=== PATIENT | male | born 1930 | race Two or more races ===

== ENCOUNTER 2020-03-01 18:23 | Inpatient (IN) | payer BC, MEDICARE, OTHER ==
[~2020-03-01] VITALS: Ht 185.4 cm; Wt 77.1 kg
[~2020-03-01 18:23] MED LIST: NO MEDS
[2020-03-01] MEDS ORDERED: MORPHINE SULFATE INJ 4 MG/ML DISP.SYRIN ONE ×2 (18:46→21:29)
[2020-03-01] MEDS ORDERED: ONDANSETRON HCL/PF 4 MG/2 ML VIAL ONE ×2 (18:46→21:29)
[2020-03-01] MEDS ORDERED: ACETAMINOPHEN ES 500 MG TABLET ONE (18:47)
[2020-03-01 18:57] LABS: BASOPHILS % (AUTO) 0.4 % (0.0-2.0); EOSINOPHILS % (AUTO) 1.2 % (0.0-6.0); HEMATOCRIT 39 % (39-51); HEMOGLOBIN 13.1 g/dL (13.5-17.5); LYMPHOCYTES % (AUTO) 12.9 % (20.0-44.0); MEAN CORPUSCULAR HGB CONC 33 g/dl (31.0-36.0); MEAN CORPUSCULAR VOLUME 98 fL (80-96); MONOCYTES # (AUTO) 0.4 /CMM (0.1-1.30); MONOCYTES % (AUTO) 5.9 % (2.0-12.0); NEUTROPHILS # (AUTO) 5.9 /CMM (1.8-8.9); NEUTROPHILS % (AUTO) 79.6 % (43.0-81.0); PLATELET COUNT (AUTO) 247 /CMM (150-450); RED BLOOD CELL COUNT(AUTO) 4.02 MIL/uL (4.5-6.0); WHITE BLOOD COUNT (AUTO) 7.4 K/uL (4.3-11.0)
--- NOTE | 2020-03-01 18:59 | NUR ---
BIB [facility], TRIPPED/FELL GETTING OUT OF HIS CAR,C/O RIGHT HIP PAIN,ABRASION. PT AAOX3, VSS. RR EVEN & UNLABORED. DENIES CP, SOB, DIZZINESS, N/V AT THIS TIME. PT SEEN & EVAL'D BY DR. PEGUERO. MEDICATED FOR PAIN, PT CHANCE WELL. WILL CONT TO MONITOR.
[2020-03-01] MEDS ORDERED: IV NS 0.9% 500 ML BAG IV ONE (19:00)
[2020-03-01] MEDS ORDERED: ONDANSETRON HCL/PF 4 MG/2 ML VIAL IVP ONE (19:00)
[2020-03-01] MEDS ORDERED: MORPHINE SULFATE INJ 2 MG/ML DISP.SYRIN IV ONE ×2 (19:00→22:30)
[2020-03-01] MEDS ORDERED: ACETAMINOPHEN ES 500 MG TABLET PO ONE (19:00)
[2020-03-01 19:06] LABS: CALCIUM, SERUM 8.6 mg/dL (8.5-10.1); CREATININE 0.9 mg/dL (0.6-1.3); POTASSIUM 3.3 mmol/L (3.5-5.1)
--- NOTE | 2020-03-01 20:13 | NUR ---
COVID SWAB SAMPLE COLLECTED AND SENT TO THE LAB.
[2020-03-01] MEDS ORDERED: VANCOMYCIN 1 GM in IV D5W 250 ML IV ONE (21:00)
[2020-03-01] MEDS ORDERED: VANCOMYCIN 1 GM VIAL ONE (21:29)
--- NOTE | 2020-03-01 22:11 | NUR ---
MEDICATED FOR PAIN PER ERMD ORDER, PT CHANCE WELL.
[2020-03-01] MEDS ORDERED: ONDANSETRON HCL/PF 4 MG/2 ML VIAL IV ONE (22:30)
--- NOTE | 2020-03-01 22:37 | NUR ---
REPORT GIVEN TO CURTIS ASKEW FOR SOO
[2020-03-02] MEDS ORDERED: Z GUARD REMEDY 2 OZ OINT TP PRN (00:30)
[2020-03-02] MEDS ORDERED: MAGNESIUM HYDROXIDE 30 ML UDC PO PRN (00:30)
[2020-03-02] MEDS ORDERED: POTASSIUM CHLORIDE 20 MEQ TAB.PRT.SR PO ONE (00:30)
[2020-03-02] MEDS ORDERED: ZOLPIDEM TARTRATE 5 MG TABLET PO PRN (00:30)
[2020-03-02] MEDS ORDERED: ACETAMINOPHEN 325 MG TABLET PO PRN (00:30)
[2020-03-02] MEDS ORDERED: MAG HYDROX/AL HYDROX/SIMETH 30 ML UDC PO PRN (00:30)
[2020-03-02] MEDS ORDERED: ONDANSETRON HCL/PF 4 MG/2 ML VIAL IVP PRN (00:30)
[2020-03-02 00:45] VITALS: BP 129/97
[2020-03-02 00:48] VITALS: BP 129/97
--- NOTE | 2020-03-02 00:48 | NUR ---
MS GROUND SERVICE EQUIPMENT MECHANIC NOTE RECEIVED PATIENT VIA GURNEY. TRANSFER TO BED. A/OX4. TOLERATING ROOM AIR. RESPIRATIONS ARE EVEN AND UNLABORED. NO S/S SOB NOTED. C/O PAIN IN RIGHT HIP. IN NO APPARENT DISTRESS. IV ACCESS IN RAC#20 PATENT AND SALINE LOCKED. INITIAL PHYSICAL ASSESSMENT COMPLETED AT THIS TIME. PATIENT REFUSED PHOTOS TO BE TAKEN OF SKIN ISSUES D/T PAIN. PATIENT PROVIDED VERY LIMITED HISTORY, DID NOT WANT TO SPEAK MUCH. FOOD PREP WORKER OBTAINED VITALS AND COMPLETED BELONGINGS LIST. BED IS LOW AND LOCKED, HOB ELEVATED IN SEMI FOWLERS, SIDE RAILS UP X3. CALL LIGHT WITHIN REACH. WILL CONTINUE TO MONITOR.
--- NOTE | 2020-03-02 00:54 | NUR ---
PATIENT TAKEN UP TO ASSIGNED ROOM.
--- NOTE | 2020-03-02 01:35 | NUR ---
ms rn note administered prn tylenol 650mg for slight temp 99.7. will continue to monitor.
--- NOTE | 2020-03-02 02:45 | NUR ---
MS RN NOTE INFORMED DR. CARTAGENA PATIENT VTE SCORE IS GREATER THAN 5 AND IF HE WOULD LIKE ANY CHEMICAL PROPHYLAXIS. TELEPHONE ORDER NOT AT THIS TIME, PATIENT MIGHT GET SURGERY. ORDER READ BACK, NOTED AND CARRIED OUT. WILL CONTINUE TO MONITOR.
[2020-03-02] MEDS: MORPHINE SULFATE INJ 2 MG/ML DISP.SYRIN IV PRN ×5 (03:27→23:45)
--- NOTE | 2020-03-02 03:30 | NUR ---
ms rn note administered prn morphine 2mg for pain 10/10 in right hip. bp 137/83 hr 114. patient is restless and trying to reposition to get comfortable. also reassess temp at this time. temp 99.0. will continue to monitor.
--- NOTE | 2020-03-02 07:30 | NUR ---
RN OPENING NOTE: RECEIVED PT AWAKE IN BED. PT C/O 11/26 RIGHT HIP PAIN. MEDICATED ROUTINELY WITH MORPHINE 2MG IVP. PATIENT A+OX1 WITH PERIODS OF CONFUSION.PATIENT BREATHING IS UNLABORED WITH EQUAL R ISE AND FALL OF THE CHEST. PT STABLE ON RA. RIGHT AC # 20 PATENT AND FLUSHING WITH NO S/SX OF INFILTRATION NOTED. PATIENT ASSISTED WITH REPOSITIONING FOR COMFORT AND CIRCULATION. PATIENT HAS NO FURTHER NEEDS AT PRESENT TIME. PATIENT EDUCATED ON USE OF THE CALL LIGHT. BED IN LOW AND LOCKED POSITION WITH SIDE RAILS UP X 2 FOR SAFETY. WILL CONT TO MONITOR
--- NOTE | 2020-03-02 07:54 | NUR ---
MS RN CLOSING NOTE PATIENT RESTING IN BED. A/OX4. TOLERATING ROOM AIR. NO RESP DISTRESS. MANAGED PAIN WITH MORPHINE. NO DISTRESS. IV ACCESS MAINTAINED IN RAC#20. BED REMAINS LOW AND LOCKED, HOB ELEVATED IN SEMI FOWLERS, SIDE RAILS UP X3. CALL LIGHT WITHIN REACH. WILL ENDORSE TO NEXT ASHIFT.
--- NOTE | 2020-03-02 09:05 | NUR ---
RN NOTE: PAIN PT C/O RIGHT HIP PAIN 01/26. MEDICATED WITH MORPHINE
--- NOTE | 2020-03-02 13:14 | NUR ---
RN NOTE: PAIN PT C/O 10/10 RIGHT HIP PAIN. MEDICATED WITH MORPHINE 2MG IVP
--- NOTE | 2020-03-02 17:24 | NUR ---
RN NOTE: PAIN PT C/O 10/10 RIGHT HIP PAIN. MEDICATED WITH MORPHINE 2MG IVP
--- NOTE | 2020-03-02 19:00 | NUR ---
RN CLOSING NOTE: PATIENT IN BE INTERMITTENTLY SLEEPING. NO S/SX OR COMPLAINT OF PAIN AT CURRENT TIME. MEDICATED MULTIPLE TIMES THROUGHOUT SHIFT WITH SUCCESSFUL PAIN RELIEF. SL PATENT, FLUSHING WITHOUT S/SX OF INFILTRATION. PT STABLE ON RA. PATIENT ASSISTED WITH REPOSITIONING EVERY 2 HOURS FOR COMFORT AND SKIN INTEGRITY. PT NPO AND CONSENT SIGNED FOR SURGERY AT 0900 IN AM. ALL NEEDS ANTICIPATED AND MET. PT KEPT CLEAN AND DRY. CONTINENT AND USES URINAL. BED IN LOW AND LOCKED POSITION WITH SIDE RAILS UP X 2 FOR SAFETY.
--- NOTE | 2020-03-02 19:20 | NUR ---
Opening Notes: Report received from am nurse. Patient is alert, awake, and oriented x2. Able to make needs known. No acute distress noted. Patient noted with open wound, scratches, and scabs on right leg, and a skin tear on right elbow with discoloration. Patient denies any pain. Patient agreed to take pictures. IV site noted on right AC, 20 g, patent and intact, no s/s of infiltration noted. Skin kept clean and dry. Assisted with ADLs as needed. Fall precautions observed. Call light within reach.
[2020-03-02 20:00] VITALS: BP 125/73
--- NOTE | 2020-03-02 23:30 | NUR ---
RN NOTES RECEIBVED PT'S FROM ANOTHER RN MEGAN, PT'S IS AWAKE , A/OX3, COMPLAINED OF RIGHT HIP PAIN, IV ACCESS IS INFILTRATED- WILL PUT A NEW IV ACCESS, NOT IN DISTRESS, CALL LIGHT WITHIN REACH, [id number], CONTINUE TO MONITOR
--- NOTE | 2020-03-02 23:35 | NUR ---
RN NOTES NEW IV ACCESS WAS INSERTED ON THE LEFT FOREARM GAUGE 20
--- NOTE | 2020-03-02 23:45 | NUR ---
RN NOTES COMPLAINED OF RIGHT HIP PAIN- MORPHINE 2 MG IV GIVEN ORDERED, V/S STABLE
[2020-03-03] VITALS (12 sets, daily range): BP systolic 101–129; BP diastolic 58–71
[2020-03-03] MEDS: MORPHINE SULFATE INJ 2 MG/ML DISP.SYRIN IV PRN (06:01)
--- NOTE | 2020-03-03 06:19 | NUR ---
RN NOTES COMPLAINED OF RIGHT HIP PAIN- MORPHINE 2 MG IV GIVEN ORDERED, V/S STABLE
--- NOTE | 2020-03-03 06:20 | NUR ---
RN NOTES MORNING CARE RENDERED, NOT IN DISTRESS, CALL LIGHT WITHIN REACH, [id number], PT. NEEDS ATTENDED
[2020-03-03 06:39] LABS: BASOPHILS % (AUTO) 0.1 % (0.0-2.0); HEMATOCRIT 31 % (39-51); HEMOGLOBIN 10.4 g/dL (13.5-17.5); LYMPHOCYTES # (AUTO) 0.9 /CMM (0.8-4.8); LYMPHOCYTES % (AUTO) 8.4 % (20.0-44.0); MEAN CORPUSCULAR HGB CONC 34 g/dl (31.0-36.0); MEAN CORPUSCULAR VOLUME 97 fL (80-96); MONOCYTES # (AUTO) 0.8 /CMM (0.1-1.30); MONOCYTES % (AUTO) 6.7 % (2.0-12.0); NEUTROPHILS # (AUTO) 9.5 /CMM (1.8-8.9); NEUTROPHILS % (AUTO) 84.8 % (43.0-81.0); PLATELET COUNT (AUTO) 227 /CMM (150-450); RED BLOOD CELL COUNT(AUTO) 3.16 MIL/uL (4.5-6.0); WHITE BLOOD COUNT (AUTO) 11.2 K/uL (4.3-11.0)
[2020-03-03 06:54] LABS: CALCIUM, SERUM 8.9 mg/dL (8.5-10.1); CREATININE 0.7 mg/dL (0.6-1.3); MAGNESIUM 1.9 mg/dL (1.8-2.4); PHOSPHORUS 3.3 mg/dL (2.5-4.9); POTASSIUM 4.1 mmol/L (3.5-5.1)
[2020-03-03] MEDS: IV NS 0.9% 1,000 ML IV PRN ×2 (08:14→21:48)
[2020-03-03 08:25] LABS: IRON, SERUM 56 ug/dl (50-175); TOTAL IRON BINDING CAPACITY 189 ug/dl (250-450)
[2020-03-03] MEDS ORDERED: BACITRACIN 50000 UNITS/VIAL ONE (08:25)
[2020-03-03] MEDS ORDERED: BUPIVACAINE 0.5 % PF 150 MG/30 ML VIAL ONE (08:25)
[2020-03-03 08:39] LABS: FERRITIN 104 ng/mL (8-388)
--- NOTE | 2020-03-03 09:02 | NUR ---
MS RN NOTES PATIENT IN BED RESTING. PATIENT ALERT, ORIENTED X3 NO SOB OR ACUTE DISTRESS NOTED. PATIENT NPO. WAITING FOR SURGERY SCHEDULED AT 11:AM. PATIENT WITH PERIPHERAL IV INTACT PATENT. SAFETY MEASURES IN PLACE. WILL CONTINUE TO MONITOR.
[2020-03-03] MEDS ORDERED: SUCCINYLCHOLINE CHLORIDE 20 MG/ML VIAL ONE (11:34)
[2020-03-03] MEDS ORDERED: KETOROLAC TROMETHAMINE INJ 30 MG/ML VIAL ONE (12:29)
[2020-03-03] MEDS ORDERED: FENTANYL PF 100MCG/2ML AMPUL ONE (12:42)
--- NOTE | 2020-03-03 13:30 | NUR ---
MS RN NOTES PATIENT RETURNED FROM OR IN STABLE CONDITION, WILL CONTINUE TO MONITOR.
--- NOTE | 2020-03-03 18:48 | NUR ---
MS RN NOTES PATIENT IN BED RESTING NO SOB OR ACUTE DISTRESS NOTED. PATIENT S/P IM RODDING. TOLERATED SURGERY WELL. NO ACUTE CHANGES NOTED. SURGICAL SITE COVERED WITH SURGICAL DRESSING. DRY AND INTACT. PATIENT DENIES ANY PAIN. ALL DUE MEDICATIONS ADMINISTERED. ALL NEEDS MET. WILL ENDORSE CARE TO PM SHIFT.
[2020-03-03] MEDS: ANCEF 1 GM/50 ML D5W IV SCH ×2 (18:52)
[2020-03-03] MEDS: HYDROCODONE/APAP 5/325MG TABLET PO PRN (19:03)
--- NOTE | 2020-03-03 19:34 | NUR ---
RN OPENING NOTES PATIENT RECEIVED RESTING IN BED A/O X 2. STABLE ON RA WITH BREATHING EVEN AND UNLABORED, NO SOB NOTED. NO SIGNS OF ACUTE DISTRESS. NO SIGNS OF PAIN OR DISCOMFORT AT THE MOMENT. IV LOCATED ON L FA #20 SL. SAFETY PRECAUTIONS IN PLACE WITH BED IN LOWEST POSITION, CALL LIGHT WITHIN REACH, BREAKS ON, SIDE RAILS UP. WILL CONTINUE TO MONITOR THROUGHOUT THE NIGHT.
[2020-03-04] MEDS: ANCEF 1 GM/50 ML D5W IV SCH ×4 (03:19→11:21)
--- NOTE | 2020-03-04 06:46 | NUR ---
RN CLOSING NOTES PATIENT RESTING IN BED A/O X 3. STABLE ON RA WITH BREATHING EVEN AND UNLABORED, NO SOB NOTED. NO SIGNS OF ACUTE DISTRESS. NO SIGNS OF PAIN OR DISCOMFORT AT THE MOMENT. IV LOCATED ON L FA #20 RUNNING NS @ 125 ML/HR. SAFETY PRECAUTIONS IN PLACE WITH BED IN LOWEST POSITION, CALL LIGHT WITHIN REACH, BREAKS ON, SIDE RAILS UP. ALL NEEDS ATTENDED TO. PATIENT KEPT CLEAN AND DRY. WILL ENDORSE TO ONCOMING SHIFT ABOUT SOO.
[2020-03-04] MEDS: IV NS 0.9% 1,000 ML IV PRN ×2 (06:47→19:08)
[2020-03-04 07:26] LABS: BASOPHILS % (AUTO) 0.2 % (0.0-2.0); HEMATOCRIT 24 % (39-51); HEMOGLOBIN 7.9 g/dL (13.5-17.5); LYMPHOCYTES # (AUTO) 0.6 /CMM (0.8-4.8); MEAN CORPUSCULAR HGB CONC 34 g/dl (31.0-36.0); MEAN CORPUSCULAR VOLUME 99 fL (80-96); MONOCYTES # (AUTO) 0.5 /CMM (0.1-1.30); MONOCYTES % (AUTO) 7.1 % (2.0-12.0); NEUTROPHILS # (AUTO) 5.8 /CMM (1.8-8.9); NEUTROPHILS % (AUTO) 83.7 % (43.0-81.0); PLATELET COUNT (AUTO) 186 /CMM (150-450); RED BLOOD CELL COUNT(AUTO) 2.39 MIL/uL (4.5-6.0)
[2020-03-04 07:40] LABS: POTASSIUM 3.9 mmol/L (3.5-5.1)
[2020-03-04 07:41] LABS: ALBUMIN 2.4 g/dL (3.4-5.0); BILIRUBIN,TOTAL 0.7 mg/dL (0.2-1.0); CALCIUM, SERUM 7.9 mg/dL (8.5-10.1); CREATININE 0.9 mg/dL (0.6-1.3); MAGNESIUM 1.9 mg/dL (1.8-2.4); PHOSPHORUS 2.8 mg/dL (2.5-4.9); TOTAL PROTEIN, SERUM 5.5 g/dL (6.4-8.2)
[2020-03-04 08:00] VITALS: BP 118/69
--- NOTE | 2020-03-04 08:08 | NUR ---
MS RN NOTES PATIENT IN BED RESTING. ALERT, ORIENTED X2. PATIENT IS FORGETFUL. NO SOB OR ACUTE DISTRESS NOTED. PERIPHERAL IV INTACT PATENT. SAFETY MEASURES IN PLACE. WILL CONTINUE TO MONITOR. PATIENT WAITING FOR PT EVAL.
[2020-03-04] MEDS: MORPHINE SULFATE INJ 2 MG/ML DISP.SYRIN IV PRN (09:58)
--- NOTE | 2020-03-04 10:52 | NUR ---
WOUND CARE CONSULT: PT PRESENTS WITH NONHEALING WOUND TO RT LOWER LEG AND SKIN TEAR TO RT UPPER ARM, PRESENT ON ADMISSION. PT STATES HAS HAD LEG WOUND FOR 2 YEARS AND THAT IT BLEEDS EASILY. RECOMMEND DPM CONSULT. DR PATEL NOTIFIED OF CONSULT REQUEST. RECOMMENDATIONS MADE FOR WOUND CARE AND SKIN PROTECTION. DISCUSSED WITH NURSING STAFF. IN AGREEMENT WITH PLAN OF CARE. Addendum: 03/04/20 at 1054 by LINO SOLOMON WNDNU Amended: Links added.
[2020-03-04] MEDS ORDERED: ENOXAPARIN SODIUM 40 MG/0.4 ML DISP.SYRIN SQ SCH (13:00)
[2020-03-04 16:00] VITALS: BP 116/61
--- NOTE | 2020-03-04 18:21 | NUR ---
MS RN NOTES PATIENT IN BED RESTING NO SOB OR ACUTE DISTRESS NOTED. ALL DUE MEDICATIONS ADMINISTERED. ALL NEEDS MET. NO ACUTE CHANGES NOTED DURING AM SHIFT WILL CONTINUE TO MONITOR.
--- NOTE | 2020-03-04 19:50 | NUR ---
MS RN OPENING NOTES RECEIVED PATIENT IN BED ALERT AND ORIENTED X 3. VERBALLY RESPONSIVE AND ABLE TO FOLLOW DIRECTIONS. BREATHING REGULAR AND UNLABORED ON ROOM AIR. LEFT FOREARM G22 IV LINE INTACT AND PATENT, INFUSING WELL WITH NO BLEEDING OR S/S OF INFILTRATION NOTED. NO ACTIVE BLEEDING OR S/S OF INFECTION SEEN ON POST SURGICAL SITE. NO COMPLAINTS OF PAIN/DISCOMFORT REPORTED AT THIS TIME. BED LOW AND LOCKED ON SEMI FOWLERS POSITION. CALL LIGHT IN REACH. WILL CONTINUE TO MONITOR.
[2020-03-04 20:00] VITALS: BP 126/76
[2020-03-05] MEDS: IV NS 0.9% 1,000 ML IV PRN (04:31)
--- NOTE | 2020-03-05 06:25 | NUR ---
MS RN CLOSING NOTES PATIENT IN BED ALERT AND ORIENTED X 2. AFEBRILE WITH NO S/S OF DISTRESS OBSERVED. LEFT FOREARM G22 IV LINE PATENT AND INFUSING WELL. NO ACTIVE BLEEDING OR S/S OF INFECTION SEEN ON POST SURGICAL SITE. NO S/S OF PAIN/DISCOMFORT NOTED AT THIS TIME. BED LOW AND LOCKED ON SEMI FOWLERS POSITION. CALL LIGHT IN REACH. WILL ENDORSE TO MORNING SHIFT FOR SOO.
--- NOTE | 2020-03-05 07:30 | NUR ---
m/s manager purchasing: initial assessment received pt in bed awake, a/ox3 with forgetfulness. reality orientation provided prn. s/p right hip im rodding, surgical dressing intact. remains on iv fluids, infusing well. no c/o pain at this time. instructed to call for assistance. will continue to monitor.
[2020-03-05 07:34] LABS: BASOPHILS % (AUTO) 0.2 % (0.0-2.0); EOSINOPHILS % (AUTO) 0.3 % (0.0-6.0); HEMATOCRIT 22 % (39-51); HEMOGLOBIN 7.4 g/dL (13.5-17.5); LYMPHOCYTES # (AUTO) 0.5 /CMM (0.8-4.8); LYMPHOCYTES % (AUTO) 8.7 % (20.0-44.0); MEAN CORPUSCULAR HGB CONC 34 g/dl (31.0-36.0); MEAN CORPUSCULAR VOLUME 99 fL (80-96); MONOCYTES # (AUTO) 0.5 /CMM (0.1-1.30); MONOCYTES % (AUTO) 8.4 % (2.0-12.0); NEUTROPHILS # (AUTO) 4.5 /CMM (1.8-8.9); NEUTROPHILS % (AUTO) 82.4 % (43.0-81.0); PLATELET COUNT (AUTO) 194 /CMM (150-450); RED BLOOD CELL COUNT(AUTO) 2.21 MIL/uL (4.5-6.0); WHITE BLOOD COUNT (AUTO) 5.4 K/uL (4.3-11.0)
[2020-03-05 07:52] LABS: ALBUMIN 2.3 g/dL (3.4-5.0); BILIRUBIN,TOTAL 0.6 mg/dL (0.2-1.0); CALCIUM, SERUM 7.8 mg/dL (8.5-10.1); CREATININE 0.7 mg/dL (0.6-1.3); MAGNESIUM 1.8 mg/dL (1.8-2.4); PHOSPHORUS 2.2 mg/dL (2.5-4.9); POTASSIUM 3.5 mmol/L (3.5-5.1); TOTAL PROTEIN, SERUM 5.5 g/dL (6.4-8.2)
[2020-03-05 08:00] VITALS: BP 141/70
--- NOTE | 2020-03-05 08:50 | NUR ---
m/s typesetters printer: ortho f/u debbie hayden (p.a.) here and dressing change to right hip. informed p.a. that pt's hgb/hct still low for lovenox and ask if he needs prophylaxis, stated, "let's keep the lovenox order, once his level is up to give it, and i will let dr. morales if he needs aspirin." will continue to monitor.
--- NOTE | 2020-03-05 09:00 | NUR ---
m/s home hospice rn: notes dr. bradley (dpm) here and made aware re: rle wound, stated, "dr. mcpherson saw him already, but she hasn't put a note yet." informed dr. bradley still awaiting for wound treatment order. will wait for dr. mcpherson's recommendation. in the meantime dress with xeroform per dr. bradley.
[2020-03-05] MEDS: HYDROCODONE/APAP 5/325MG TABLET PO PRN (09:36)
--- NOTE | 2020-03-05 09:36 | NUR ---
m/s sleeve sewer: notes medicated with norco 5/325 1 tab po prior to physical therapy treatment. instructed to call for assistance. karmen (p.t.) at bedside and will come back in half an hour for tx.
--- NOTE | 2020-03-05 10:36 | NUR ---
m/s wastewater treatment supervisor: notes pt tolerated p.t. tx, resting comfortable in bed now. instructed to call for assistance. will continue to monitor.
[2020-03-05] MEDS ORDERED: K PHOS NEUTRAL 250 MG TABLET PO ONE (11:00)
--- NOTE | 2020-03-05 12:00 | NUR ---
m/s vacuum cleaner operator: md visit seen and examined by dr. carter. pt for d'c planning to [facility], pt is agreeable. case management making arrangement.
--- NOTE | 2020-03-05 13:32 | NUR ---
Filler Leaf Cutter Long consult requested by Dr. Lamont Steinberg. SW met with the patient at bedside. Patient is alert and oriented x4, able to make his needs known. Patient is a 89 year-old male. Patient did not want to provide much information to this SW but the patient informed this SW that the patient was agreeable to [facility] as case management team had spoken to him. Patient ended this SW assessment as patient stated he wanted to rest. SW to remain available for all needs regarding this patient.
--- NOTE | 2020-03-05 15:45 | NUR ---
m/s fisher eel spear: notes jeovany (liam) called and informed me that pt is going to [facility]. pt made aware re: d'c to [facility] and agreeable. pt refused flu and pneumococcal vaccine when offered, stated, "i'll think about it and maybe if i change my mind, i will do it at the rehab." ask pt if i can call anyone for him, stated, "i don't have anyone."
--- NOTE | 2020-03-05 16:15 | NUR ---
m/s service worker: notes report given to evelia (rn) at [facility] for continuity of care. eta at 1800. pt aware.
--- NOTE | 2020-03-05 16:30 | NUR ---
m/s die designer: notes discharge instructions given to pt and verbalized understanding. eta remains at 1800.
--- NOTE | 2020-03-05 17:56 | NUR ---
m/s monogram technician: notes received tx order from dpm re: Wound location <RLE`>Instructions <Please apply therahoney and dress with DSD daily. order acknowledged. updated discharge instructions papers. awaiting for ambulance.
--- NOTE | 2020-03-05 18:35 | NUR ---
m/s escrow secretary: notes ambulance here and report given to one of the crew. h/l removed with tip intact. all valuables returned to pt. pt stable for discharge.
--- NOTE | 2020-03-05 18:50 | NUR ---
m/s qa reviewer: discharge discharged to [facility] in stable condition with all valuables and d'c papers accompanied by 3 emt.
[2020-03-06] MEDS ORDERED: THERAHONEY GEL 1.5 OZ TUBE TP SCH (09:00)
== END 2020-03-05 18:50 | DRG 481 ==
LOC: ER 18:27 → MED 03-02 00:26
PROC: 0QS606Z Reposition Right Upper Femur with Intramedullary Internal Fixation Device, Open Approach (ICD-10-PCS; principal; 2020-03-03)
DX: S72.141A Displaced intertrochanteric fracture of right femur, initial encounter for closed fracture (principal); L97.919 Non-pressure chronic ulcer of unspecified part of right lower leg with unspecified severity; N17.9 Acute kidney failure, unspecified; W01.0XXA Fall on same level from slipping, tripping and stumbling without subsequent striking against object, initial encounter; K21.9 Gastro-esophageal reflux disease without esophagitis; E87.6 Hypokalemia; K42.9 Umbilical hernia without obstruction or gangrene; I35.0 Nonrheumatic aortic (valve) stenosis; Y92.008 Other place in unspecified non-institutional (private) residence as the place of occurrence of the external cause
CPT/HCPCS: 36415; 71045-TC; 72170-TC; 73502; 80048-TC; 80053-TC; 80061-TC; 82728-TC; 83540-TC; 83735-TC; 84100-TC; 85025-TC; 85730-TC; 87081-TC; 93307-TC; 97112-TC; 97116-TC; 97530-TC; A6209; A6253; A6403; C1713; C9803; G0378; J0330; J0690; J1100; J1885; J2270; J2405; J2704; J3010; J3370; J3490; J7030; J7040; J7050; J7060